=== PATIENT | female | born 1945 | race Caucasian/White ===

== ENCOUNTER 2017-01-05 21:13 | Emergency (ER) | payer MEDICARE, BC, OTHER ==
[~2017-01-05] VITALS: Ht 162.6 cm; Wt 52.7 kg
[2017-01-05] MEDS ORDERED: TIMO5OPG OD (21:28)
[2017-01-05] MEDS ORDERED: CALTTAB5 PO (21:28)
[2017-01-05] MEDS ORDERED: AMBI5TAB PO (21:28)
[2017-01-05] MEDS ORDERED: CENTTAB PO (21:28)
[2017-01-05] MEDS ORDERED: MECL-86 PO (21:28)
[2017-01-05] MEDS ORDERED: LISI10TA4 PO (21:28)
[2017-01-05] MEDS ORDERED: ASPI1TAB PO (21:28)
[2017-01-05] MEDS ORDERED: CRES10TA32 PO (21:28)
--- NOTE | 2017-01-05 21:47 | ECGEPIP ---
Stationary ECG Study [facility] - ED Test Date: 2017-01-05 Pat Name: ZAID LARRY Department: Room: - Gender: F [employer]: woo : 1945 Requested By: JOSE Yip Order Number: [id number] Reading MD: Scarlet Paige Measurements Intervals [place] Rate: 61 P: 45 MS: 163 QRS: -7 QRSD: 97 T: 35 QT: 414 QTc: 418 Interpretive Statements SINUS RHYTHM WITH OCCASIONAL VENTRICULAR PREMATURE COMPLEXES POSSIBLE LEFT ATRIAL ENLARGEMENT INCOMPLETE RIGHT BUNDLE BRANCH BLOCK POSSIBLE LEFT VENTRICULAR HYPERTROPHY NO PRIOR FOR COMPARISON Electronically Signed On 01-05-2017 21:47:49 EDT by Scarlet Paige
[2017-01-05 22:00] LABS: ADD MANUAL DIFFER YES; DIFF SLIDE NUMBER 370; MEAN CORPUSCULAR HEMOGLOBIN 32.9 pg (27.0-33.0); MEAN CORPUSCULAR HGB CONC 33.8 g/dl (32.0-36.5); MEAN CORPUSCULAR VOLUME 97.5 fl (80.0-96.0); PLATELET COUNT, AUTOMATED 146 k/mm3 (150-450); RED CELL DISTRIBUTION WIDTH 13.1 % (11.5-14.5)
[2017-01-05 22:07] LABS: WHITE BLOOD COUNT 149.9 K/mm3 (4.0-10.0)
[2017-01-05 22:13] LABS: ANION GAP 10 MEQ/L (8-16); BLOOD UREA NITROGEN 23 MG/DL (7-18); CALCIUM LEVEL 9.4 MG/DL (8.8-10.2); CARBON DIOXIDE LEVEL 26 MEQ/L (21-32); CHLORIDE LEVEL 107 MEQ/L (98-107); CREATININE FOR GFR 0.96 MG/DL (0.55-1.02); GLOMERULAR FILTRATION RATE > 60.0 (>45); GLUCOSE, FASTING 91 MG/DL (80-110); MAGNESIUM LEVEL 2.1 MG/DL (1.8-2.4); POTASSIUM SERUM 4.2 MEQ/L (3.5-5.1); SODIUM LEVEL 143 MEQ/L (136-145)
[2017-01-05 22:18] LABS: FREE T4 1.03 NG/DL (0.76-1.46)
[2017-01-05 22:31] LABS: SMUDGE CELLS 3+
[2017-01-05] MEDS ORDERED: diphenhydrAMINE INJ 50MG/ML VIAL (J1200) IV ONE (22:45)
[2017-01-05] MEDS ORDERED: methylPREDNISolone INJ 125 MG/2 ML VIAL (J2930) IV ONE (22:45)
[2017-01-05] MEDS ORDERED: ISOVUE-370 76% 100ML VIAL (Q9967) As Ordered ONE (23:07)
--- NOTE | 2017-01-05 23:50 | REPUSA ---
CT angiogram of the chest Clinical statement: Chest pain and shortness of breath. Technique: Multiple axial CT images were obtained from the thoracic inlet through the upper abdomen a fter a bolus administration of nonionic intravenous contrast. Coronal and sagittal reconstructions we re also obtained. No comparison is available. Findings: The pulmonary arteries are well-opacified with contrast, with no intraluminal filling defec ts to suggest embolism. The thoracic aorta is unremarkable. Thyroid gland is within normal limits. Th ere is no thoracic lymphadenopathy. There are no pericardial or pleural effusions. The lungs are mavis r. Limited imaging of the upper abdomen is unremarkable. There are no suspicious osseous lesions. Impression: Unremarkable CT examination of the chest. No evidence of pulmonary embolism.
[2017-01-06 02:49] VITALS: BP 125/68
== END 2017-01-06 02:53 | disposition home or self-care (01) ==
LOC: M ED 21:13
DX: R07.89 Other chest pain (principal); I25.10 Atherosclerotic heart disease of native coronary artery without angina pectoris; I10 Essential (primary) hypertension; E78.5 Hyperlipidemia, unspecified; Z85.6 Personal history of leukemia; Z91.041 Radiographic dye allergy status; Z79.899 Other long term (current) drug therapy; Z79.82 Long term (current) use of aspirin; Z86.711 Personal history of pulmonary embolism
CPT/HCPCS: 71275; 80048; 82550; 82553; 83735; 84439; 84443; 84484; 85025; 93005; 93041; 94760; 96374; 96375; 99285; J1200; J2930; Q9967

== ENCOUNTER → 2018-01-12 | Outpatient (REF) | payer MEDICARE, BC, OTHER ==
[2018-01-12 15:17] LABS: HEMATOCRIT 34.2 % (36.0-47.0); HEMOGLOBIN 9.3 g/dl (12.0-15.5); MEAN CORPUSCULAR HGB CONC 27.2 g/dl (32.0-36.5); MEAN CORPUSCULAR VOLUME 110.3 fl (80.0-96.0); PLATELET COUNT, AUTOMATED 149 10^3/uL (150-450); RED CELL DISTRIBUTION WIDTH 18.8 % (11.5-14.5)
[2018-01-12 15:47] LABS: ALBUMIN 3.7 GM/DL (3.2-5.2); ALBUMIN/GLOBULIN RATIO 1.61 (1.00-1.93); ALKALINE PHOSPHATASE 84 U/L (45-117); ALT/SGPT 20 U/L (12-78); ANION GAP 5 MEQ/L (8-16); AST/SGOT 22 U/L (7-37); BILIRUBIN,TOTAL 0.6 MG/DL (0.2-1.0); BLOOD UREA NITROGEN 14 MG/DL (7-18); CALCIUM LEVEL 9.2 MG/DL (8.8-10.2); CARBON DIOXIDE LEVEL 30 MEQ/L (21-32); CHLORIDE LEVEL 104 MEQ/L (98-107); CREATININE FOR GFR 0.97 MG/DL (0.55-1.30); GLOMERULAR FILTRATION RATE > 60.0 (>39); GLUCOSE, FASTING 90 MG/DL (70-100); LDH LACTATE DEHYDROGENASE 158 U/L (84-246); PHOSPHORUS LEVEL 3.8 MG/DL (2.5-4.9); POTASSIUM SERUM 4.1 MEQ/L (3.5-5.1); SODIUM LEVEL 139 MEQ/L (136-145); URIC ACID 2.4 MG/DL (2.6-6.0)
[2018-01-12 16:10] LABS: ADD MANUAL DIFFER YES; DIFF SLIDE NUMBER 240; POS COUNT POS FLAG; POSITIVE DIFF POS FLAG; POSITIVE MORPH POS FLAG
[2018-01-12 16:15] LABS: WHITE BLOOD COUNT 296.1 10^3/uL (4.0-10.0)
[2018-01-12 16:29] LABS: NEUTROPHILS 1 % (35-75)
[2018-01-12 16:30] LABS: ANISOCYTOSIS 1+; LYMPHOCYTES 99 % (16-52)
[2018-01-12 16:31] LABS: PLATELET ESTIMATE DECREASED (NORMAL)
== END ==
LOC: M LABDRAWC 12:42
DX: D64.9 Anemia, unspecified (principal); I26.99 Other pulmonary embolism without acute cor pulmonale; C91.10 Chronic lymphocytic leukemia of B-cell type not having achieved remission
CPT/HCPCS: 83615

== ENCOUNTER → 2018-01-19 | Outpatient (REF) | payer MEDICARE, BC, OTHER ==
[2018-01-19 12:28] LABS: HEMATOCRIT 34.4 % (36.0-47.0); HEMOGLOBIN 9.5 g/dl (12.0-15.5); MEAN CORPUSCULAR HEMOGLOBIN 30.5 pg (27.0-33.0); MEAN CORPUSCULAR HGB CONC 27.6 g/dl (32.0-36.5); MEAN CORPUSCULAR VOLUME 110.6 fl (80.0-96.0); PLATELET COUNT, AUTOMATED 142 10^3/uL (150-450); RED BLOOD COUNT 3.11 10^6/uL (4.00-5.40)
[2018-01-19 12:37] LABS: POS COUNT POS FLAG; POSITIVE DIFF POS FLAG; POSITIVE MORPH POS FLAG; WHITE BLOOD COUNT 295.4 10^3/uL (4.0-10.0)
[2018-01-19 12:38] LABS: ADD MANUAL DIFFER YES; DIFF SLIDE NUMBER 202
[2018-01-19 13:15] LABS: ATYPICAL LYMPH 5 % (0-5); LYMPHOCYTES 94 % (16-52); NEUTROPHILS 1 % (35-75)
[2018-01-19 13:16] LABS: PLATELET ESTIMATE DECREASED (NORMAL); SMUDGE CELLS 2+
[2018-01-19 13:17] LABS: ACANTHOCYTES 1+
[2018-01-19 13:49] LABS: ALBUMIN 3.8 GM/DL (3.2-5.2); ALBUMIN/GLOBULIN RATIO 1.65 (1.00-1.93); ALKALINE PHOSPHATASE 79 U/L (45-117); ALT/SGPT 23 U/L (12-78); ANION GAP 9 MEQ/L (8-16); AST/SGOT 18 U/L (7-37); BILIRUBIN,TOTAL 0.6 MG/DL (0.2-1.0); BLOOD UREA NITROGEN 25 MG/DL (7-18); CALCIUM LEVEL 9.2 MG/DL (8.8-10.2); CARBON DIOXIDE LEVEL 27 MEQ/L (21-32); CHLORIDE LEVEL 106 MEQ/L (98-107); CREATININE FOR GFR 0.94 MG/DL (0.55-1.30); GLOMERULAR FILTRATION RATE > 60.0 (>39); GLUCOSE, FASTING 94 MG/DL (70-100); LDH LACTATE DEHYDROGENASE 159 U/L (84-246); MAGNESIUM LEVEL 2.4 MG/DL (1.8-2.4); PHOSPHORUS LEVEL 3.9 MG/DL (2.5-4.9); SODIUM LEVEL 142 MEQ/L (136-145); TOTAL PROTEIN 6.1 GM/DL (6.4-8.2); URIC ACID 2.3 MG/DL (2.6-6.0)
== END ==
LOC: M LABDRAWC 11:22
DX: D64.9 Anemia, unspecified (principal); I26.99 Other pulmonary embolism without acute cor pulmonale; C91.10 Chronic lymphocytic leukemia of B-cell type not having achieved remission
CPT/HCPCS: 83615

== ENCOUNTER → 2018-01-26 | Outpatient (REF) | payer MEDICARE, BC, OTHER ==
[2018-01-26 13:19] LABS: HEMATOCRIT 36.2 % (36.0-47.0); HEMOGLOBIN 9.7 g/dl (12.0-15.5); MEAN CORPUSCULAR HEMOGLOBIN 29.2 pg (27.0-33.0); MEAN CORPUSCULAR HGB CONC 26.8 g/dl (32.0-36.5); PLATELET COUNT, AUTOMATED 145 10^3/uL (150-450); RED BLOOD COUNT 3.32 10^6/uL (4.00-5.40)
[2018-01-26 13:30] LABS: POS COUNT POS FLAG; POSITIVE DIFF POS FLAG; POSITIVE MORPH POS FLAG
[2018-01-26 13:38] LABS: ADD MANUAL DIFFER YES; DIFF SLIDE NUMBER 240; WHITE BLOOD COUNT 321.8 10^3/uL (4.0-10.0)
[2018-01-26 14:16] LABS: ALBUMIN 4.1 GM/DL (3.2-5.2); ALBUMIN/GLOBULIN RATIO 1.95 (1.00-1.93); ALKALINE PHOSPHATASE 79 U/L (45-117); ALT/SGPT 19 U/L (12-78); ANION GAP 8 MEQ/L (8-16); AST/SGOT 20 U/L (7-37); BILIRUBIN,TOTAL 0.7 MG/DL (0.2-1.0); BLOOD UREA NITROGEN 16 MG/DL (7-18); CARBON DIOXIDE LEVEL 28 MEQ/L (21-32); CHLORIDE LEVEL 106 MEQ/L (98-107); CREATININE FOR GFR 0.99 MG/DL (0.55-1.30); GLUCOSE, FASTING 92 MG/DL (70-100); LDH LACTATE DEHYDROGENASE 172 U/L (84-246); MAGNESIUM LEVEL 2.3 MG/DL (1.8-2.4); PHOSPHORUS LEVEL 3.4 MG/DL (2.5-4.9); POTASSIUM SERUM 4.2 MEQ/L (3.5-5.1); SODIUM LEVEL 142 MEQ/L (136-145); TOTAL PROTEIN 6.2 GM/DL (6.4-8.2); URIC ACID 4.7 MG/DL (2.6-6.0)
[2018-01-26 14:45] LABS: LYMPHOCYTES 98 % (16-52); NEUTROPHILS 2 % (35-75)
[2018-01-26 14:46] LABS: PLATELET ESTIMATE DECREASED (NORMAL)
== END ==
LOC: M LABDRAWC 11:38
DX: D64.9 Anemia, unspecified (principal); I26.99 Other pulmonary embolism without acute cor pulmonale; C91.90 Lymphoid leukemia, unspecified not having achieved remission; C91.10 Chronic lymphocytic leukemia of B-cell type not having achieved remission
CPT/HCPCS: 83615

== ENCOUNTER → 2019-01-05 | Outpatient (REF) | payer MEDICARE, BC, OTHER ==
[~2019-01-05] MED LIST: AMBI5TAB PO; ASPI81TA26 PO; CALTTAB5 PO; CENTTAB PO; CRES10TA PO; LISI10TA4 PO; MECL-86 PO; TIMO0.5S7 OD
[2019-01-05 11:51] LABS: APPEARANCE, URINE CLEAR (CLEAR); BACTERIA, URINE AUTO NEGATIVE (NEGATIVE); BILIRUBIN, URINE AUTO NEGATIVE (NEGATIVE); BLOOD, URINE BLOOD 1+ (NEGATIVE); COLOR, URINE STRAW (YELLOW); GLUCOSE, URINE (UA) AUTO NEGATIVE (NEGATIVE); KETONE, URINE AUTO NEGATIVE (NEGATIVE); LEUKOCYTE ESTERASE, URINE AUTO 1+ (NEGATIVE); MUCUS, URINE SMALL (NEGATIVE); NITRITE, URINE AUTO NEGATIVE (NEGATIVE); PROTEIN, URINE AUTO NEGATIVE (NEGATIVE); RBC, URINE AUTO 1 /HPF (0-3); SPECIFIC GRAVITY URINE AUTO 1.009 (1.002-1.035); SQUAMOUS EPITHELIAL CELL UR AU 1 /HPF (0-6); UROBILINOGEN, URINE AUTO 0.2 mg/dL (0.0-2.0); WBC, URINE AUTO 7 /HPF (0-3)
== END ==
LOC: M LAB REF 11:19
PROVIDERS: ATTEND Family Medicine
DX: R31.29 Other microscopic hematuria (principal)